=== PATIENT | female | born 1980 | race Caucasian/White ===

== ENCOUNTER → 2017-08-21 18:17 | Outpatient (CLI) | payer BC ==
[~2017-08-21 18:17] MED LIST: MACROBID100 MG PO
[2017-10-24 07:55] VITALS: BMI 23.0
== END | disposition home or self-care (01) ==
LOC: D.LABREF 18:17
DX: N39.0 Urinary tract infection, site not specified (principal)

== ENCOUNTER → 2017-09-12 16:27 | Outpatient (CLI) | payer BC ==
[2017-10-24 07:55] VITALS: BMI 23.0
== END | disposition home or self-care (01) ==
LOC: D.LABREF 16:27
DX: N39.0 Urinary tract infection, site not specified (principal)

== ENCOUNTER → 2017-10-13 16:22 | Outpatient (CLI) | payer BC, MEDICAID ==
[2017-10-24 07:55] VITALS: BMI 23.0
== END | disposition home or self-care (01) ==
LOC: D.RAD 16:22
DX: N20.0 Calculus of kidney (principal)

== ENCOUNTER → 2017-10-13 17:27 | Outpatient (CLI) | payer BC, MEDICAID ==
[2017-10-24 07:55] VITALS: BMI 23.0
== END | disposition home or self-care (01) ==
LOC: D.LABREF 17:27
DX: D72.829 Elevated white blood cell count, unspecified (principal)

== ENCOUNTER → 2017-10-18 15:05 | Outpatient (CLI) | payer BC, MEDICAID ==
[2017-10-24 07:55] VITALS: BMI 23.0
== END | disposition home or self-care (01) ==
LOC: D.CT 15:05
DX: N20.0 Calculus of kidney (principal)

== ENCOUNTER 2017-10-24 06:42 | Day surgery (SDC) | payer BC, MEDICAID ==
[2017-10-23 08:59] LABS: HEMATOCRIT 36.6 % (36.0-48.0); HEMOGLOBIN 12.6 g/dL (12-16); MCH 32.6 pg (26.0-34.0); MCHC 34.4 g/dL (31.0-37.0); MCV 94.8 fL (80.0-100.0); MEAN PLATELET VOLUME 9.5 fL (7.4-10.4); RBC 3.86 10x6/uL (4.00-5.40); RDW 13.1 % (11.5-14.5); WBC 6.5 10x3/uL (4.8-10.8)
[~2017-10-24] VITALS: Ht 166.4 cm; Wt 67.6 kg
--- NOTE | ~2017-10-24 | OP ---
PATIENT NAME: RHINA JESUS MEDICAL RECORD: [id number] :76 LOCATION:D[facility] ADMISSION DATE: SURGEON: PAOLO SWIFT MD DATE OF OPERATION: 10/24/2017 SURGEON: Dr. Paolo Swift ANESTHESIA: General anesthesia by Jes Calloway CRNA. DIAGNOSES: Interstitial cystitis and right lower pole renal stone 3 mm, which has spontaneously passed. PROCEDURES: Cystoscopy, right retrograde pyelogram, right ureteroscopy and nephroscopy, right ureteral stent insertion 6-Bruneian x 24 cm with string attached, intravesical Rimso instillation. FINDINGS: The patient has urethral rotation. Single ureteral orifices seen bilaterally on cystoscopy. Diffuse bladder inflammation with glomerulations. No bladder tumors. On retrograde pyelogram, no filling defects are seen. On nephroscopy, no renal stone is seen. All papillae have Domenic's plaques on them. ESTIMATED BLOOD LOSS: None. INDICATIONS: This is a 36-year-old female who has symptoms of recurrent urinary tract infections. On 10/13/2017, the urine culture did grow E. coli. It is sensitive to Macrobid and she is on Macrobid right now. She continues to have UTI symptoms. We were concerned about her frequent recurrences of urinary tract infections and a CT scan of the abdomen and pelvis was obtained as well as a KUB to see if she might have an infected kidney stone as the source of her infections. She turned out to have a 3-mm right lower pole renal stone. It is nonobstructive. The patient requested that the stone be removed by ureteroscopy at the same time that she was scheduled to have cystoscopy with intravesical Rimso instillation for possible interstitial cystitis. This discussion occurred while I was away on a conference. She had discussed this with my nurse in the office. When I talked to the patient today, I said that it was possible to do the ureteroscopy, but because of her stone was only 3 mm in size we may wish to consider also ESWL as an alternative. However, she did not wish to come back for a second session and she therefore requested that everything be done in one go. She is not allergic to any medications. DESCRIPTION OF THE PROCEDURE: She was given Ancef IV on-call to the OR. The patient was given induction of general anesthesia. She was placed in the dorsal lithotomy position and prepped and draped. Fluoroscopy did not reveal any radiodense stones. On her previous KUB done a couple of weeks ago there was a small but clearly visible radiodense stone in the right lower pole of the kidney. The patient has urethral rotation, which suggests that she may have issues with stress urinary incontinence. This will be from urethral hypermobility. The scope was placed in and cystoscopy was performed. She has diffuse bladder inflammation consistent with either recent cystitis, which she did have or interstitial cystitis. The retrograde pyelogram was performed by inserting an open-ended ureteral catheter into the right ureteral orifice. The catheter is OPERATIVE REPORT [id number] RHINA JESUS 5-Bruneian in circumference. Diluted contrast was then injected and we found no hydronephrosis and no filling defects. Through the lumen of the ureteral catheter, a Sensor wire was placed up into the renal pelvis. The ureteral catheter and cystoscope were then removed. The Sensor wire was clamped to the drapes to act as a safety wire. We then reinserted the cystoscope and a second Sensor wire was inserted up the urethra. The scope was then removed again. Therefore, she has 2 wires going up the ureter up to the renal pelvis. Through the second wire, we placed a 12/14 x 46 cm ureteral access sheath. This was placed under fluoroscopic guidance as it went all the way up to the kidney. Once the sheath was in correct position, the trocar of the sheath as well as the second Sensor wire was removed entirely. The flexible ureteroscope was then introduced. Starting from the lower pole of the kidneys, I could identify all of the calices. I went into each infundibulum looking for the stone. Multiple Domenic's plaques were seen on each of the collecting systems and the papillae. However, no free stone was seen. I then moved to the mid pole calices and finally to the upper pole calices and again no stone could be seen. In conjunction with the negative fluoroscopic findings, I suspect that she has passed a stone. The ureteroscope was then completely removed. The working sheath was removed, leaving the safety wire in place. The safety wire was then backloaded into the cystoscope. The cystoscope was reintroduced. Over the safety wire, we inserted the 6-Bruneian x 24 cm right ureteral stent. Once the stent was in correct position, the wire was withdrawn entirely. The distal end of the stent was pushed into the bladder using a pusher. The bladder was emptied through the cystoscope sheath and then the scope was removed, leaving the stent in place. The stent has a string attached to it, which hangs out of the urethra. We kept the string in place. The string was taped to the suprapubic area to facilitate removal of the stent in the future. A red rubber catheter 16-Bruneian in size was placed into the urethra, 15 mL of Rimso-50 solution was placed into the bladder and the patient will be holding it in the bladder for at least 15 minutes before voiding it out. I will see the patient next week to remove the ureteral stent and to give her the second treatment of Rimso. TRANSINT:[id number] Voice Confirmation ID: [id number] DOCUMENT ID: [id number] PAOLO SWIFT MD at 1329 CC: [id number] DICTATION DATE: 10/24/17 1008 DISTRIBUTED GENERATION PROJECT MANAGER: 10/24/17 1201 [facility] [address] [id number]
[2017-10-24 07:55] VITALS: BP 108/67; Ht 166.4 cm; Wt 67.6 kg
[2017-10-24 08:05] LABS: HCG URINE NEGATIVE (NEGATIVE)
== END 2017-10-24 12:10 | disposition home or self-care (01) ==
LOC: D.OPS 06:42
PROVIDERS: Anesthesiology; Urology
DX: N30.10 Interstitial cystitis (chronic) without hematuria (principal); N20.0 Calculus of kidney; Z01.812 Encounter for preprocedural laboratory examination

== ENCOUNTER → 2017-10-31 12:16 | Outpatient (CLI) | payer BC, MEDICAID ==
[2017-10-24 07:55] VITALS: BMI 23.0
== END | disposition home or self-care (01) ==
LOC: D.LABREF 12:16
DX: D72.829 Elevated white blood cell count, unspecified (principal); R31.9 Hematuria, unspecified; R79.89 Other specified abnormal findings of blood chemistry

== ENCOUNTER → 2017-11-14 18:41 | Outpatient (CLI) | payer BC, MEDICAID ==
[2017-10-24 07:55] VITALS: BMI 23.0
== END | disposition home or self-care (01) ==
LOC: D.LABREF 18:41
DX: D72.829 Elevated white blood cell count, unspecified (principal); R31.9 Hematuria, unspecified

== ENCOUNTER → 2017-11-28 17:40 | Outpatient (CLI) | payer BC, MEDICAID ==
[2017-10-24 07:55] VITALS: BMI 23.0
== END | disposition home or self-care (01) ==
LOC: D.LABREF 17:40
DX: N39.0 Urinary tract infection, site not specified (principal)

== ENCOUNTER → 2017-12-05 17:58 | Outpatient (CLI) | payer BC, MEDICAID ==
[2017-10-24 07:55] VITALS: BMI 23.0
== END | disposition home or self-care (01) ==
LOC: D.LABREF 17:58
DX: D72.829 Elevated white blood cell count, unspecified (principal)

== ENCOUNTER → 2017-12-26 15:42 | Outpatient (CLI) | payer BC, MEDICAID ==
[2017-10-24 07:55] VITALS: BMI 23.0
== END | disposition home or self-care (01) ==
LOC: D.LABREF 15:42
DX: R31.9 Hematuria, unspecified (principal); D72.829 Elevated white blood cell count, unspecified

== ENCOUNTER → 2018-01-12 17:56 | Outpatient (CLI) | payer BC, MEDICAID ==
[2017-10-24 07:55] VITALS: BMI 23.0
== END | disposition home or self-care (01) ==
LOC: D.LABREF 17:56
DX: R31.9 Hematuria, unspecified (principal)

== ENCOUNTER → 2018-07-31 18:18 | Outpatient (CLI) | payer BC, MEDICAID ==
[2017-10-24 07:55] VITALS: BMI 23.0
== END | disposition home or self-care (01) ==
LOC: D.LABREF 18:18
PROVIDERS: ATTEND Urology
DX: O26.899 Other specified pregnancy related conditions, unspecified trimester (principal)

== ENCOUNTER → 2018-08-20 18:46 | Outpatient (CLI) | payer BC, MEDICAID ==
[2017-10-24 07:55] VITALS: BMI 23.0
== END | disposition home or self-care (01) ==
LOC: D.LABREF 18:46
PROVIDERS: ATTEND Urology
DX: D72.829 Elevated white blood cell count, unspecified (principal)

== ENCOUNTER → 2019-04-04 17:46 | Outpatient (CLI) | payer BC ==
[2017-10-24 07:55] VITALS: BMI 23.0
== END | disposition home or self-care (01) ==
LOC: D.LABREF 17:46
PROVIDERS: ATTEND Urology
DX: N39.0 Urinary tract infection, site not specified (principal)

== ENCOUNTER → 2019-04-12 14:45 | Outpatient (CLI) | payer BC ==
[2017-10-24 07:55] VITALS: BMI 23.0
== END | disposition home or self-care (01) ==
LOC: D.LABREF 14:45
PROVIDERS: ATTEND Urology
DX: N39.0 Urinary tract infection, site not specified (principal)